=== PATIENT | male | born 1985 | race Caucasian/White ===

== ENCOUNTER → 2019-08-14 | Outpatient (CLI) | payer BC ==
--- NOTE | 2019-08-21 12:42 | MR ---
EXAMINATION TYPE: MR liver wo/w con DATE OF EXAM: 08/14/2019 COMPARISON: Outside complete abdominal ultrasound report July 07, 2019. Outside CT abdomen report August 03, 2015. HISTORY: Unspecified jaundice, elevated billirubin CONTRAST: Standard multiplanar, multisequence MRI departmental protocol utilizing 9 mL intravenous Gadavist quan olinium contrast. Imaging is performed of the abdomen focusing on the liver. FINDINGS: Exam is suboptimal as there is motion artifact degradation. LIVER/GALLBLADDER: The liver is overall normal in size. There is absence mild signal dropout consiste nt with mild fatty infiltration. There are a few simple appearing thin-walled cysts scattered through out the liver all measuring subcentimeter in size. There is no concerning greater than 1 cm solid or cystic renal mass. Dynamic postcontrast images shows suboptimal hepatic arterial phase as there is c ontrast in portal vein noted. Left portal vein shows focal prominence centrally image 484 series 701 for reference could reflect vascular anomaly or shunt. There are patent hepatic veins draining into I VC superior to this. No surrounding ascites Gallbladder shows fold without dependent gallstone. No ab normal wall thickening. No suspicious biliary dilatation. OTHER: Lung bases are clear. There is occasional simple-appearing thin-walled cysts scattered through out both kidneys largest right kidney measures up to 2.0 cm in size midpole level coronal image 31. N o hydronephrosis bilaterally. There is 3.5 cm right adrenal mass with signal dropout consistent with benign lipid rich adenoma. Splenomegaly is present measuring nearly 17 cm in length on coronal images . Osseous structures are intact. No abdominal ascites or suspicious adenopathy. IMPRESSION: No worrisome intrahepatic mass or intrahepatic ductal dilatation. Splenomegaly is noted n ot seen were noted on prior outside ultrasound and CT and may warrant further clinical workup. Few si mple appearing thin-walled cysts throughout the liver and bilateral kidneys incidentally redemonstrat ed. Confirmation of benign lipid rich right adrenal mass or adenoma.
== END | disposition home or self-care (01) ==
LOC: RADMRIMAIN 08:48
PROVIDERS: ATTEND Internal Medicine Gastroenterology
DX: R17 Unspecified jaundice (principal)
CPT/HCPCS: 74183; A9585

== ENCOUNTER → 2019-09-01 | Outpatient (CLI) | payer BC ==
--- NOTE | 2019-09-01 15:07 | NM ---
EXAMINATION TYPE: NM hepatobiliary w EF DATE OF EXAM: 09/01/2019 COMPARISON: MRI of the liver dated 08/14/2019 HISTORY: Unspecified jaundice. TECHNIQUE: After the intravenous administration of 3.7 mCi Tc 99m Mebrofenin hepatobiliary scintigrap hy is performed. Immediate images post injection. FINDINGS: There is satisfactory initial accumulation of tracer by the liver. The gallbladder is visualized wit hin 12 minutes. The small bowel activity is noted within 46 minutes. At one hour 8 ounces of oral e nsure plus is given to mimic CCK and gallbladder ejection fraction is calculated at 87 %, elevated. Therefore there is no scintigraphic evidence of cystic or common bile duct obstruction to suggest acu te cholecystitis or gallbladder dyskinesia. IMPRESSION: Biliary hyperkinesia with abnormal ejection fraction of 87%. No scintigraphic evidence of acute or chronic cholecystitis.
== END | disposition home or self-care (01) ==
LOC: RADNMMAIN 11:43
PROVIDERS: ATTEND Nurse Practitioner
DX: K83.8 Other specified diseases of biliary tract (principal)
CPT/HCPCS: 78226; A9537

== ENCOUNTER → 2019-10-08 | Outpatient (CLI) | payer BC, OTHER ==
--- NOTE | 2019-10-08 11:19 | CT ---
EXAMINATION TYPE: CT abdomen w con DATE OF EXAM: 10/08/2019 COMPARISON: None HISTORY: Right upper quadrant pain CT DLP: 862 mGycm CONTRAST: CT scan of the abdomen and pelvis is performed with Oral Contrast and with IV Contrast, patient injec karen with 100 mL of Isovue 300. FINDINGS: LUNG BASES-: No visible nodule. No infiltrate. LIVER/GB: No calcified gallstones. Simple cyst measuring 7 mm anterior segment right hepatic lobe. Tiny subcentimeter cyst near the dome of the liver. Biliary tree is of normal caliber. PANCREAS: No inflammation. No distinct mass. SPLEEN: Mild splenomegaly with craniocaudal measurement of 13.4 cm. No lesion seen. ADRENALS: Right adrenal mass measuring 2.4 centimeters and may reflect an adenoma. The left adrenal g land is unremarkable. KIDNEYS/BLADDER: No hydronephrosis. No nephrolithiasis. Simple cyst midpole right kidney measuring 1.9 cm. Simple cyst lower pole left kidney measuring 1.3 cm. No solid renal masses identified. Urinar y bladder grossly unremarkable. BOWEL: Visualized gastrointestinal tract is of normal caliber. LYMPH NODES: No greater than 1cm abdominal or pelvic lymph nodes are appreciated. AORTA: No significant abnormality. OSSEOUS STRUCTURES: No significant abnormality is seen. OTHER: No significant additional abnormality is seen. IMPRESSION: 1. A few scattered simple hepatic cysts. 2. Simple renal cysts. 3. Probable right adrenal adenoma.
== END | disposition home or self-care (01) ==
LOC: RADCTMAIN 08:05
PROVIDERS: ATTEND Internal Medicine Gastroenterology
DX: K76.89 Other specified diseases of liver (principal); N28.1 Cyst of kidney, acquired
CPT/HCPCS: 74160; Q9967

== ENCOUNTER → 2019-10-17 | Outpatient (CLI) | payer BC, OTHER ==
[2019-10-18 00:04] LABS: Bilirubin, Conjugated 0.3 mg/dL (0.20-0.40); Bilirubin,Unconjugated 0.7 mg/dL
== END | disposition home or self-care (01) ==
LOC: LABWHC1 14:45
PROVIDERS: ATTEND Nurse Practitioner
DX: E80.6 Other disorders of bilirubin metabolism (principal)
CPT/HCPCS: 36415; 82248; 83516

== ENCOUNTER → 2020-02-11 | Day surgery (SDC) | payer BC ==
[2020-02-07 13:31] VITALS: BMI 28.5
[~2020-02-11] MED LIST: DEXAMETHASONE SOD PHOSPHATE 10 MG/ML 1 ML VIAL IV ONE; GLYCOPYRROLATE 0.2 MG/ML 2 ML VIAL ONE; HEPARIN SODIUM,PORCINE 5,000 UNIT/ML 1 ML VIAL SQ ONE; HYDROcodone/APAP 5-325MG 1 EACH TAB ONE; HYDROmorphone 0.5 MG/0.5 ML SYRINGE IVP PRN; LACTATED RINGERS 1,000 ML IV ONE; LACTATED RINGERS 1,000 ML IV SCH; LIDOCAINE 1% INJ 10MG/ML (20 ML MDV) ONE; LIDOCAINE 1%-EPI 1:100,000 20 ML VIAL SQ ONE; MIDAZOLAM 2 MG/2 ML VIAL IVP ONE; MIDAZOLAM 2 MG/2 ML VIAL ONE; NEOSTIGMINE 1 MG/ML 10 ML VIAL ONE; ONDANSETRON 4 MG/2 ML VIAL IVP ONE; PROPOFOL 10 MG/ML 20 ML VIAL IV ONE; ROCURONIUM BROMIDE 10 MG/ML 5 ML VIAL IV ONE; SCOPOLAMINE 1.5MG/72HR PATCH TRANSDERM ONE; SUCCINYLCHOLINE CHLORIDE 100 MG/5 ML SYR IV ONE; fentaNYL (PF) 50 MCG/ML 2 ML AMP ONE
--- NOTE | 2020-02-11 13:33 | P.GSHP ---
History of Present Illness H&P Date: 02/11/20 Chief Complaint: Right upper quadrant pain This a 30 for male who presents today for laparoscopic cholecystectomy. Patient complains right quadrant pain. Recent HIDA scan shows a hyperkinetic gallbladder. Past Medical History Additional Past Medical History / Comment(s): intermittent lower midchest pain after eating certain food. History of Any Multi-Drug Resistant Organisms: None Reported Past Surgical History: No Surgical Hx Reported Additional Past Surgical History / Comment(s): wisdom teeth removal Past Anesthesia/Blood Transfusion Reactions: No Reported Reaction Additional Past Anesthesia/Blood Transfusion Reaction / Comment(s): no hx general anesthesia or blood transfusion Smoking Status: Current some day smoker - Past Family History Mother Family Medical History: No Reported History Medications and Allergies Home Medications Medication Instructions Recorded Confirmed Type No Known Home Medications 11/08/19 02/11/20 History Allergies Allergy/AdvReac Type Severity Reaction Status Date / Time No Known Allergies Allergy Verified 02/11/20 10:56 Surgical - Exam Vital Signs Temp Pulse Resp BP Pulse Ox 97 F L 86 16 148/91 98 02/11/20 10:57 02/11/20 10:57 02/11/20 10:57 02/11/20 10:57 02/11/20 10:57 - General well developed, well nourished, no distress - Eyes PERRL - ENT normal pinna - Neck no masses - Respiratory normal expansion - Cardiovascular Rhythm: regular - Abdomen Abdomen: soft, non tender Assessment and Plan Assessment: Chronic lysis of Right upper quadrant pain We'll perform laparoscopic cholecystectomy.
[2020-02-11 14:47] VITALS: TEMP 97.9
[2020-02-11 15:37] VITALS: RESP 17
--- NOTE | 2020-02-11 15:48 | P.OP ---
Date of Procedure: 02/11/20 Preoperative Diagnosis: Cholecystitis Postoperative Diagnosis: Cholecystitis Procedure(s) Performed: Laparoscopic cholecystectomy Anesthesia: AALIYAH Surgeon: Kavon Badillo Estimated Blood Loss (ml): 5 Pathology: other (Gallbladder) Condition: stable Disposition: PACU Description of Procedure: The patient was placed on the operating table. The patient received a general endotracheal tube anesthesia. The patients abdomen was prepped and draped in the usual sterile fashion. Through an infraumbilical stab incision, the fascia of the anterior abdominal wall was grasped with a pair of Kochers and then the Veress needle was placed in the peritoneal cavity. Position of the Veress needle was confirmed with positive drop test. The abdomen was then insufflated. After adequate insufflation, the 10 mm trocar was placed in the peritoneal cavity. Following this the laparoscope was placed in the peritoneal cavity. The patient was placed in the head-up, right side up position and then a 5 mm trocar was placed in the right lateral and right subcostal position under direct visualization. A 8 mm trocar was placed in the epigastric position. The gallbladder was grasped in the fundus and infundibulum. Traction on the gallbladder was placed in the lateral and the cephalad positions. The triangle of Calot was visualized.. The cystic duct was bluntly dissected until the union of the cystic duct and common bile duct was seen. A critical view of safety was achieved. The cystic duct was then divided and sealed with the Harmonic scissors. A PDS Endoloop was then placed throughout the cystic duct stump. The cystic artery divided and sealed with the Harmonic scissors. The gallbladder was then removed from the liver bed using Harmonic scissors. The gallbladder was then extracted through the epigastric port site. Operative field was checked for any bleeding spots and Harmonic scissors was used to coagulate the liver bed. The abdomen was irrigated. The trocars were removed. The skin was closed using interrupted 3-0 Vicryl suture. Dermabond dressing were applied. The patient tolerated the procedure well.
[2020-02-11 15:49] VITALS: BP 116/76; PULSE 80
== END | disposition home or self-care (01) ==
LOC: OR 09:32
PROVIDERS: ATTEND Surgery
DX: K81.1 Chronic cholecystitis (principal); Z98.818 Other dental procedure status; F17.200 Nicotine dependence, unspecified, uncomplicated
CPT/HCPCS: 88304; 47562; J2250; J1644; J1100; J2710; J0690; J2405; J2001; J3010; J0330; J2704

== ENCOUNTER → 2021-12-14 | Outpatient (CLI) | payer OTHER ==
--- NOTE | 2021-12-15 15:30 | MR ---
MR abdomen with and without contrast HISTORY: R 19.09 Multiplanar multisequence and postcontrast images obtained through the abdomen following 9 cc Gadavis t IV. Correlation to CT scan 12/09/2021 from outside institution, prior MRI liver 07/15/2019 Right adrenal mass is again noted and shows a similar size compared to MRI dated 07/15/2019, lesion m easures 4.1 cm in cephalad to caudal dimension on current exam, 3.9 cm in AP dimension by 2.9 cm in t ransverse dimension, lesion previously measured approximately 3.5 cm in cephalad to caudal dimension by 2.4 cm in transverse by 3.4 in AP dimension. Signal is somewhat more heterogeneous however on the current exam. There is enhancement following contrast administration as noted on prior exam. There is artifact on the exam. Signal drop on out of phase images and is consistent with adrenal adenoma lesi on shows some associated fat signal. Left adrenal gland is unremarkable. Some scattered probable cysts are associated with the liver, sign al drop on out of phase imaging within liver is compatible with hepatic steatosis. Spleen is noted be enlarged. Cortical cysts are associated with the kidneys as on prior. There is no ascites or retrope ritoneal adenopathy. Lung bases show no effusion. Pancreas is within normal limits, gallbladder is ab sent. No evident bowel obstruction. IMPRESSION: Minimal increase in size in patient's adrenal mass compared to prior exam MRI of 08/14/2019, heteroge neity could possibly be due to underlying adrenal hemorrhage but is indeterminate. Additional follow- up could be performed to assess for stability.
== END | disposition home or self-care (01) ==
LOC: RADMRIMAIN 11:20
PROVIDERS: ATTEND Physician Assistant Medical
DX: E27.8 Other specified disorders of adrenal gland (principal)
CPT/HCPCS: 74183; A9585

== ENCOUNTER → 2021-12-22 | Outpatient (CLI) | payer OTHER ==
--- NOTE | 2021-12-23 07:42 | US ---
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 injury to xyphoid process, now palpable are felt sherita t is tender Soft tissue scan of palpable area along xyphoid produces no anomaly by ultrasound No discrete solid or cystic areas are evident. IMPRESSION: 1. Negative ultrasound of xiphoid region.
== END | disposition home or self-care (01) ==
LOC: RADUSWWP 16:27
PROVIDERS: ATTEND Family Medicine
DX: M89.8X8 Other specified disorders of bone, other site (principal)
CPT/HCPCS: 76705

== ENCOUNTER → 2022-08-27 | Outpatient (CLI) | payer OTHER ==
--- NOTE | 2022-08-28 12:56 | PE ---
EXAMINATION TYPE: PET CT fusion skull to thigh DATE OF EXAM: 08/27/2022 CLINICAL INDICATION:Male, 36 years old with history of E27.8 Other Specified disorders of adrenal gla nd; TECHNIQUE: Following the intravenous administration of 12.18 mCi of F-18 FDG, whole body images are performed from the skull base to the midthigh. Images are reviewed on the computer in the coronal, axial, and sagittal planes. Reconstructed rotating images are created on independent workstation and reviewed on the computer. A non-contrast CT is performed in conjunction with the PET scan. Glucose level 96 mg/dL COMPARISON: CT 12/09/2021, CT abdomen with contrast 10/08/2019, PET/CT None, FINDINGS: Mediastinal SUV mean is 1.5. Hepatic parenchyma SUV mean is 1.7. SKULL BASE AND NECK: No suspicious radiotracer activity. CHEST, MEDIASTINUM, AND HILAR REGION: No suspicious radiotracer activity. ABDOMEN AND PELVIS: Right adrenal nodule measuring 3.8 x 2.8 cm with 2 separate soft tissues with di fferent attenuations on CT imaging. There is lower attenuation measuring up to 8 Hounsfield units salvatore sures roughly 3.2 x 1.8 cm and higher attenuation tissue measuring 48 Hounsfield units and has a more rounded appearance superiorly measuring 1.9 cm and more inferiorly measuring oval measuring 2.6 x 2. 1 cm. Max SUV 1.7 of the right adrenal gland. No asymmetric uptake in either attenuation. No suspicious radiotracer activity. OSSEOUS STRUCTURES: No suspicious radiotracer activity. OTHER CT: No acute process. Right renal cyst with peripheral calcification. Scattered clonic divertic nicho. Fat-containing umbilical hernia. IMPRESSION: Right adrenal gland nodule with 2 distinct attenuations suggestive of adrenal collision tumor. The lo wer attenuation portion is most consistent with lipid rich adrenal adenoma and higher attenuating por tion is indeterminate. The hyperattenuating portion has increased in size compared to 10/08/2019. No s uspicious radiotracer activity in either attenuations. Correlation with serum markers is recommended and urologic consultation.
== END | disposition home or self-care (01) ==
LOC: RADPETMAIN 07:19
PROVIDERS: ATTEND Physician Assistant Medical
DX: E27.8 Other specified disorders of adrenal gland (principal)
CPT/HCPCS: 78815; A9552

== ENCOUNTER → 2022-11-03 | Outpatient (CLI) | payer OTHER ==
[2022-11-03 22:50] LABS: Gliadin AB IgA, Deaminated NEGATIVE (NEGATIVE); Gliadin AB IgA, Unit <0.2 U/mL; Gliadin AB IgG, Deaminated NEGATIVE (NEGATIVE); Gliadin AB IgG, Unit <0.4 U/mL
== END | disposition home or self-care (01) ==
LOC: LABWHC1 10:20
PROVIDERS: ATTEND Nurse Practitioner Family
DX: K52.9 Noninfective gastroenteritis and colitis, unspecified (principal)
CPT/HCPCS: 36415; 83516; 85652; 86140

== ENCOUNTER → 2024-06-13 | Outpatient (CLI) | payer OTHER ==
--- NOTE | 2024-06-13 16:49 | US ---
EXAMINATION TYPE: US thyroid st tissue head/neck DATE OF EXAM: 06/13/2024 COMPARISON: PET CT 08/27/2022 CLINICAL INDICATION: Male, 38 years old with history of R59.0 ENLARGED LYMPHNODES; PALPABLE AREA LEFT SUBMANDIBULAR REGION TECHNIQUE: Grayscale and color Doppler imaging of PALPABLE AREA FINDINGS/IMPRESSION: THERE IS A 1.1X0.6X1.0CM COMPLEX HETEROGENOUS AREA NOTED AT PATIENTS PALPABLE AREA WITH A TRACT CINDI G TO THE SKIN SURFACE . THERE IS POSTERIOR ACOUSTIC ENHANCEMENT DEMONSTRATED CONSISTENT WITH FLUID. N O INTERNAL COLOR FLOW. PROBABLY REPRESENTS A SEBACEOUS CYST. NO VISUALIZED LYMPHADENOPATHY. [facility], , 06/13/2024 4:47 PM
== END | disposition home or self-care (01) ==
LOC: RADUSWWP 14:51
PROVIDERS: ATTEND Family Medicine
DX: R59.0 Localized enlarged lymph nodes (principal)
CPT/HCPCS: 76536

== ENCOUNTER → 2024-06-25 | Outpatient (CLI) | payer OTHER ==
--- NOTE | 2024-06-25 15:03 | CT ---
EXAMINATION TYPE: CT soft tissue neck w con DATE OF EXAM: 06/25/2024 8:55 AM COMPARISON: Recent ultrasound dated 06/13/2024. CLINICAL INDICATION: Male, 38 years old with history of R93.89 Abn finding on diagnostic imaging, Abn ormal findings on US in PACS 06/14 Areas of concern marked with BBs. Suspected adrenal ca., TECHNIQUE: Axial CT was performed with sagittal and coronal reformats. IV CONTRAST: with IV Contrast, patient injected with 100 mL of Isovue 300. (None if empty) CT DLP: 640.20 mGycm, Automated exposure control for dose reduction was used. FINDINGS: At the site of clinical concern marked by a BB marker left neck there is mild skin thickening is a ti ny subcutaneous lesion measuring up to 9 mm. This is most likely secondary to a sebaceous cyst. AIRWAY: The supraglottic, glottic, and subglottic portions of the airway appear patent and free of mass. SALIVARY GLANDS: The submandibular and parotid glands are free of mass or inflammatory process. THYROID GLAND: No nodules or masses seen. LYMPH NODES: No adenopathy seen greater than 1cm. LUNG APICES: No nodule or mass is seen. OTHER: Vascular structures are patent. No significant degenerative change of the cervical spine. N o abscess seen. Small mucous retention cyst or polyp right maxillary sinus. Nasal septal deviation fr om left to right. IMPRESSION: At the site of clinical concern marked by a BB marker left neck there is mild skin thickening is a ti ny subcutaneous lesion measuring up to 9 mm. This is most likely secondary to a sebaceous cyst. [facility], , 06/25/2024 3:00 PM
== END | disposition home or self-care (01) ==
LOC: RADCTMAIN 08:08
PROVIDERS: ATTEND Family Medicine
DX: R93.89 Abnormal findings on diagnostic imaging of other specified body structures (principal); R23.4 Changes in skin texture
CPT/HCPCS: 70491; Q9967

== ENCOUNTER → 2024-07-10 | Outpatient (CLI) | payer OTHER ==
--- NOTE | 2024-07-11 18:05 | CA ---
Exercise Stress Test Report Name: Jacobo Marie Exam Date: 07/10/2024 09:00 Exam Location: [place] Stress Ht (in): 72 Wt (lb): 195 BSA: 2.11 Ordering Phys: Ramana Pacheco MD Referring Phys: Dayami Pena PAC Technologist: Chema Leung Age: 38 Gender: M : 1985 Procedure CPT: Indications: R07.89 other chest pain ICD-10 Codes: Patient History: Medications: NONE Meds past 24 hrs: Pretest Chest Pain: STRESS TEST Ruben Protocol Exercise Duration (min:sec): 12:[address] Depressions (mm): Angina Score: Farnsworth Score: Resting HR (bpm): 101 Peak HR (bpm): 182 Resting BP (mmHg): 114 / 86 Peak BP (mmHg): 153 / 76 MPHR: 182 Target HR: 155 % MPHR: 100 METS: 12.7 Total Dose: Peak Dose: Atropine: Double Product: 03092 BP Response: Stress Termination: Reached target heart rate Stress Symptoms: No chest pain or symptoms Stress Summary: Patient exercised on Ruben protocol for 12 minutes 29 seconds achieving 12.7 METS. Patient was able to achieve 100% of age- predicted maximal heart rate. Patient had normal blood pressure and heart rate response. Patient did not report any substernal chest pressure or shortness of breath with exercise. Test was terminated because of completion of protocol. ECG ANALYSIS Resting ECG: Normal sinus rhythm Stress ECG: No significant ST-T wave changes that are diagnostic for ischemia. There were no sustained arrhythmias or ectopic beats noticed. CONCLUSIONS Good exercise tolerance for age achieving 12.7 METS Nonischemic ECG response to treadmill exercise Normal hemodynamic response to treadmill exercise Overall normal treadmill stress test. Dr Daquan Ruiz (Electronically Signed) Final Date: 11 July 2024 18:04
== END | disposition home or self-care (01) ==
LOC: RADNMMAIN 08:30
PROVIDERS: ATTEND Family Medicine
DX: R07.89 Other chest pain (principal)
CPT/HCPCS: 93017

== ENCOUNTER → 2024-11-02 | Outpatient (CLI) | payer OTHER ==
--- NOTE | 2024-11-02 14:55 | US ---
EXAMINATION TYPE: US abdomen limited DATE OF EXAM: 11/02/2024 COMPARISON: 08/27/2022 CLINICAL INDICATION: Male, 39 years old with history of R10.12 LEFT UPPER QUADRANT PAIN; Right adrena l and adrenal tumor removed last october, splenomegaly and intermittent abdominal pain. New onset pain with fever x 1 week. New left adrenal tumor TECHNIQUE: Multiple sonographic images of the left upper quadrant are obtained. FINDINGS: EXAM MEASUREMENTS: Spleen: 13.5 x 6.1 x 6.9 cm Left Kidney: 12.4 x 4.5 x 7.2 cm LOG BRANDER NOTES: ? left adrenal tumor seen superomedial to left kidney and inferomedial to the sple en = 2.1 x 1.4 x 1.7 cm 1. Spleen: wnl 2. Left Kidney: wnl IMPRESSION: Indeterminate area possibly within the left adrenal gland. Further evaluation with adrenal mass milton col MRI or CT recommended [facility], , 11/02/2024 2:52 PM
== END | disposition home or self-care (01) ==
LOC: RADUSWWP 14:05
PROVIDERS: ATTEND Family Medicine
DX: R16.1 Splenomegaly, not elsewhere classified (principal)
CPT/HCPCS: 76705

== ENCOUNTER 2024-11-14 06:32 | Day surgery (SDC) | payer OTHER ==
[2024-11-13 13:09] VITALS: BMI 26.4
[2024-11-14] MEDS: LACTATED RINGERS 1,000 ML IV ONE (06:54)
[2024-11-14 07:02] VITALS: TEMP 98
[2024-11-14] MEDS: LACTATED RINGERS 1,000 ML IV SCH (07:02)
[2024-11-14] MEDS ORDERED: PROPOFOL 10 MG/ML 20 ML VIAL IV ONE (07:49)
[2024-11-14] MEDS ORDERED: LIDOCAINE 1% INJ 10MG/ML (20 ML MDV) ONE (07:49)
--- NOTE | 2024-11-14 07:59 | P.PCN ---
Date of Procedure: 11/14/24 Procedure(s) Performed: BRIEF HISTORY: Patient is a 39-year-old, pleasant, white male scheduled for an upper endoscopy as a part evaluation of chronic epigastric pain for the last 1 year duration. Started the symptoms since he had surgery for adrenal tumor in October 2023. He denies any heartburn. Reports no nausea vomiting. He tried omeprazole 20 mg daily for 6 months with no help.. PROCEDURE PERFORMED: Esophagogastroduodenoscopy with biopsy. PREOPERATIVE DIAGNOSIS: Chronic epigastric pain of 1 year duration. IV sedation per anesthesia. PROCEDURE: After informed consent was obtained, the patient was brought into the endoscopy unit. IV sedation was administered by Anesthesia under continuous monitoring. Initially the Olympus GIF-140 video endoscope was inserted into the mouth. Esophagus intubated without any difficulty. It was gradually advanced into the stomach and duodenum and carefully examined. The bulb and the second part of the duodenum appeared normal. The scope at this time was withdrawn to the stomach, adequately insufflated with air, and upon careful examination, mucosa of the antrum had mild mottling of the mucosa consistent with gastritis and biopsies were done from this area. Mucosa of the, body, cardia and the fundus appeared normal. The scope was then withdrawn into the esophagus. Small hiatal hernia noted. The GE junction was located at 39 cm from the incisors. The esophagus appeared normal. There were no erosions or ulcerations seen, biopsies were done from the distal esophagus and the patient tolerated the procedure well. IMPRESSION: 1. Mild antral gastritis. 2. Small hiatal hernia no evidence of esophagitis or peptic ulcer disease. RECOMMENDATIONS: The findings of this examination were discussed with the patient as well as his family. He was advised to follow-up with the biopsy results.. Advised to use analgesics as needed for possible musculoskeletal causes of epigastric pain. Follow-up in the office if he has any worsening symptoms.
[2024-11-14 08:24] VITALS: BP 94/60; PULSE 69; RESP 18
== END 2024-11-14 08:46 | disposition home or self-care (01) ==
LOC: ORWHC2ENDO 06:32
PROVIDERS: ATTEND Internal Medicine Gastroenterology
DX: K29.50 Unspecified chronic gastritis without bleeding (principal); K20.90 Esophagitis, unspecified without bleeding; K44.9 Diaphragmatic hernia without obstruction or gangrene; K76.9 Liver disease, unspecified; J45.909 Unspecified asthma, uncomplicated; E27.40 Unspecified adrenocortical insufficiency; Q25.44 Congenital dilation of aorta
CPT/HCPCS: 88305; 43239; J2003; J2704

== ENCOUNTER → 2025-01-07 | Outpatient (CLI) | payer OTHER ==
--- NOTE | 2025-01-07 10:41 | CT ---
EXAMINATION TYPE: CT chest wo con DATE OF EXAM: 01/07/2025 9:09 AM COMPARISON: PET/CT 08/27/2022 . CLINICAL INDICATION: Male, 39 years old with history of I71.20 THORACIC AORTIC ANEURYSM, WITHOUT RUPT URE; PHH, Thoracic aortic aneurysm w/o rupture. TECHNIQUE: Multiple axial images were obtained through the chest without IV contrast. Sagittal and co shahbaz reformats were created for review. MIP was performed on a separate workstation. CT DLP: 430.7 mGycm, Automated exposure control for dose reduction was used. FINDINGS: Heart is normal size without pericardial effusion. No significant coronary artery calcifications are seen. Ascending aorta aneurysmal at 4.5 cm. Measures 4.7 cm on prior 08/27/2022 PET/CT likely due to motion. Conventional vessel branching anatomy. No consolidation or pleural effusion. Tiny hiatal hernia. Visualized upper abdomen shows slight low attenuation of the hepatic parenchyma s uggesting fatty infiltration. Patient status post right adrenalectomy. Interval development of a new left adrenal nodule measuring 2.0 cm with indeterminate attenuation of 27 Hounsfield units. Bones: No osseous destructive process. IMPRESSION: 1. Ascending aortic aneurysm relatively unchanged at 4.5 cm. 2. Status post right adrenalectomy but with interval development of a new left adrenal nodule measuri ng 2.0 cm. Attenuation does not indicate a lipid rich adrenal adenoma. Consider adrenal mass protocol CT or MRI to further evaluate. Correlate with findings on previous right adrenal pathology. Follow up recommendations for incidental pulmonary nodules, if there are any, are per [employer] or [employer]. [email or web address].[email or web address]?lang=us [facility], , 01/07/2025 10:38 AM
== END | disposition home or self-care (01) ==
LOC: RADCTMAIN 08:56
PROVIDERS: ATTEND Surgery
DX: I71.20 Thoracic aortic aneurysm, without rupture, unspecified (principal); I71.21 Aneurysm of the ascending aorta, without rupture; E27.8 Other specified disorders of adrenal gland
CPT/HCPCS: 71250